=== PATIENT | male | born 1990 | race Two or more races ===

== ENCOUNTER 2024-09-26 09:45 | Emergency (ER) | payer OTHER ==
[~2024-09-26] VITALS: Ht 172.7 cm; Wt 91.0 kg
--- NOTE | 2024-09-26 10:18 | ED.PDOC ---
GI ASSESSMENT HPI Comments 34 y/o MJORDON, presents to the ED for CC of nausea and vomiting. EMS reports, patient is coming from home where he c/o nausea, vomiting, and intractable abdominal following taking marijuana edibles last night (09/25/24). EMS relays, patient consumes edibles approximately twice a week and has never had adverse symptoms prior to today (09/26/24). Patient was given Zofran in route to the ED with relief of emesis. No other symptoms or modifying factors are present at this time. Chief Complaint: Nausea/Vomiting Time Seen by MD: 09:40 Reviewed Notes: Nurses Notes, [employer] Receptionist Notes, Medications, Allergies Allergies: Coded Allergies: NO KNOWN ALLERGIES (Unverified , 09/26/24) Information Source: Patient, Emergency Med Personnel Mode of Arrival: EMS Timing: Days Duration: Since onset Prehospital treatment: None Vomitus: Watery Stool: Normal Severity: Moderate Recent: Other (marijuana ingestion) Recent Hx of: None Pain Location: Diffuse Modifying Factors: Nothing Associated sign and symptoms: Nausea, Vomiting, Abdominal Pain Past Medical History PAST MEDICAL HISTORY: Denies Surgical History: Denies all surgeries Family History Family History: Unknown Social History Smoker: Unknown Alcohol: Unknown Drugs: Marijuana Lives In: Home Constitutional: denies: chills, diaphoresis, fatigue, fever, malaise, sweats, weakness, others EENTM: denies: blurred vision, double vision, ear bleeding, ear discharge, ear drainage, ear pain, ear ringing, eye pain, eye redness, hearing loss, mouth pain, mouth swelling, nasal discharge, nose bleeding, nose congestion, nose pain, photophobia, tearing, throat pain, throat swelling, voice changes, others Respiratory: denies: cough, hemoptysis, orthopnea, SOB at rest, shortness of breath, SOB with excertion, stridor, wheezing, others Cardiovascular: denies: chest pain, dizzy spells, diaphoresis, Dyspnea on exertion, edema, irregular heart beat, left arm pain, lightheadedness, palpitations, PND, syncope, others Gastrointestinal: reports: abdominal pain, nausea, vomiting; denies: abdomen distended, blood streaked bowels, constipated, diarrhea, dysphagia, difficulty swallowing, hematemesis, melena, poor appetite, poor fluid intake, rectal bleeding, rectal pain, others Genitourinary: denies: burning, dysuria, flank pain, frequency, hematuria, incontinence, penile discharge, penile sore, pain, testicle pain, testicle swelling, urgency, others Neurological: denies: dizziness, fainting, headache, left sided numbness, left sided weakness, numbness, paresthesia, pre-existing deficit, right sided numbness, right sided weakness, seizure, speech problems, tingling, tremors, weakness, others Musculoskeletal: denies: back pain, gout, joint pain, joint swelling, muscle pain, muscle stiffness, neck pain, others Integumetry: denies: bruises, change in color, change in hair/nails, dryness, laceration, lesions, lumps, rash, wounds, others Allergic/Immunocompromised: denies: Difficulty Healing, Frequent Infections, Hives, Itching, others Hematologic/Lymphatic: denies: anemia, blood clots, easy bleeding, easy bruising, swollen glands, others Endocrine: denies: excessive hunger, excessive sweating, excessive thirst, excessive urination, flushing, intolerance to cold, intolerance to heat, unexplained weight gain, unexplained weight loss, others Psychiatric: denies: anxiety, bipolar disorder, depression, hopeless, panic disorder, schizophrenia, sleepless, suicidal, others All Other Systems: Reviewed and Negative Physical Exam General Appearance: Mild Distress, Normal, Other (lethargic) HEENT: Normal ENT Inspection, Pharynx Normal Neck: Full Range of Motion, Non-Tender, Normal, Normal Inspection Respiratory: Chest Non-Tender, Lungs Clear, No Accessory Muscle Use, No Respiratory Distress, Normal Breath Sounds Cardiovascular: No Edema, No Murmur, No Gallop, Normal Peripheral Pulses, Regular Rate/Rhythm Breast Exam: Deferred Gastrointestinal: No Organomegaly, Non Tender, No Pulsatile Mass, Normal Bowel Sounds, Soft Genitalia: Deferred Pelvic: Deferred Rectal: Deferred Extremities: No calf tenderness, Normal capillary refill, Normal inspection, Normal range of motion, Non-tender, No pedal edema Musculoskeletal : Apperance: Normal Neurologic: Alert, population health manager II-XII nml as Tested, No Motor Deficits, Normal Affect, Normal Mood, No Sensory Deficits Cerebellar Function: Normal Reflexes: Normal Skin: Dry, Normal Color, Warm Lymphatic: No Adenopathy Was a procedure done? Was a procedure done?: No GI differential Dx Differential Diagnosis: Gastritis/PUD, Gastroenteritis, Drug toxicity, Electrolyte Imbalance X-Ray, Labs, Meds, VS Vital Signs Date Time Temp Pulse Resp B/P (MAP) Pulse Ox O2 Delivery O2 Flow Rate FiO2 09/26/24 11:00 98.1 90 18 92/50 (64) 96 98.1 09/26/24 10:07 93 09/26/24 09:45 98.0 95 20 119/78 92 98.0 Current Medications Medications (Trade) Dose Ordered Sig/Alf Route Start Time Stop Time Status Last Admin Sodium Chloride 1,000 ml @ 1,000 mls/hr Q1H ONCE IV 09/26/24 10:00 09/26/24 10:59 DC 09/26/24 10:58 Famotidine (Pepcid Injection) 20 mg ONCE ONCE IV 09/26/24 10:00 09/26/24 10:01 DC 09/26/24 10:59 Ondansetron HCl (Zofran) 4 mg ONCE ONCE IV 09/26/24 10:00 09/26/24 10:01 DC 09/26/24 10:59 Time of 1ST Reevaluation: 10:10 Reevaluation 1ST: Unchanged Patient Education/Counseling: Diagnosis, Treatment Family Education/Counseling: No Family Present SEPSIS Sepsis Screen Date sepsis recognized/suspect: Sep 26, 2024 Time Sepsis recognized/suspect: 1000 Recent Procedure: No On Antibiotic Therapy: No Respiratory Rate >20: No Heart Rate >90: No Temp<36 C (96.8 F) or >38.3 C: No SBP <90 or MAP <65 mmHG: No New Acute Mental Status Change: No Is the patient on CPAP, BIPAP,: No Physician Orders Electrocardigram (09/26/24 10:03) Electrocardigram (09/26/24 11:03) Electrocardigram (09/26/24 13:03) Vital Signs Date Time Temp Pulse Resp B/P (MAP) Pulse Ox O2 Delivery O2 Flow Rate FiO2 09/26/24 11:00 98.1 90 18 92/50 (64) 96 98.1 09/26/24 10:07 93 09/26/24 09:45 98.0 95 20 119/78 92 98.0 Medications Medications Dose Ordered Sig/Alf Route Start Time Stop Time Status Last Admin Dose Admin Famotidine 20 mg ONCE ONCE IV 09/26/24 10:00 09/26/24 10:01 DC 09/26/24 10:59 Ondansetron HCl 4 mg ONCE ONCE IV 09/26/24 10:00 09/26/24 10:01 DC 09/26/24 10:59 Sodium Chloride 1,000 ml @ 1,000 mls/hr Q1H ONCE IV 09/26/24 10:00 09/26/24 10:59 DC 09/26/24 10:58 Departure 1 Departure Time of Disposition: 14:33 (Patient is feeling better and wants to go home.) Impression: Primary Impression: Marijuana intoxication Qualified Codes: F12.920 - Cannabis use, unspecified with intoxication, uncomplicated Additional Impression: Vomiting Qualified Codes: R11.12 - Projectile vomiting Disposition: 01 HOME / SELF CARE / HOMELESS Condition: Stable Discharged With: Self Critical Care Note Critical Care Time?: No Stability Stability form required: No Heart Score Heart Score: Heart Score Response (Comments) Value History N/A 0 EKG N/A 0 Age N/A 0 Risk Factors N/A 0 Troponin N/A 0 Total 0 I personally scribed for OLENA WILKERSON MD ([email or web address]) on 09/26/24 at 10:18. Electronically submitted by Melinda Barr ([email or web address]). I personally scribed for OLENA WILKERSON MD ([email or web address]) on 09/26/24 at 14:30. Electronically submitted by Melinda Barr ([email or web address]). OLENA WILKERSON MD Sep 26, 2024 10:18
[2024-09-26] MEDS: SODIUM CHLORIDE 0.9% 1,000 ML IV ONE (10:58)
[2024-09-26] MEDS: ONDANSETRON HCL 4 MG/2 ML VIAL IV ONE (10:59)
[2024-09-26] MEDS: FAMOTIDINE (10MG/ML) 2ML VL IV ONE (10:59)
[2024-09-26 14:45] VITALS: BP 100/63; PULSE 79; RESP 17; TEMP 97.8; O2SAT 100
--- NOTE | 2024-09-27 19:14 | ECG ---
[facility] Test Date: 2024-09-26 Test Time: 10:07:30 Pat Name: Vanessa Turcios Department: ED Room: Gender: M Money Counter: cynthia : [id number] Requested By: OLENA WILKERSON Order Number: [id number] Reading MD: Measurements Intervals [place] Rate: 93 P: 34 [place]: 139 QRS: 73 QRSD: 118 T: 8 QT: 386 QTc: 481 Interpretive Statements Sinus rhythm Nonspecific intraventricular conduction delay Borderline ST depression, diffuse leads Baseline wander in lead(s) II,V5 Please click the below link to view image of tracing.
== END 2024-09-26 15:00 | disposition home or self-care (01) ==
LOC: EDBD 09:45 → EDSEX 09:45 → ER 09:45
DX: F12.920 Cannabis use, unspecified with intoxication, uncomplicated (principal); R11.2 Nausea with vomiting, unspecified; Z79.899 Other long term (current) drug therapy
CPT/HCPCS: 82947; 93005; 96361; 96374; 96375; 99284; J2405; J3490; J7030